=== PATIENT | male | born 2000 | race Two or more races ===

== ENCOUNTER 2023-04-26 01:01 | Emergency (ER) | payer SELFPAY ==
[2023-04-26 04:17] LABS: CORONAVIRUS COVID-19 NAA POSITIVE (NEGATIVE); INFLUENZA A NAA NEGATIVE (NEGATIVE); INFLUENZA B NAA NEGATIVE (NEGATIVE)
[2023-04-26] MEDS ORDERED: Acetaminophen 500 MG Tab PO STA (04:30)
[2023-04-26 05:02] LABS: BASOPHILS ABSOLUTE AUTO 0.07 K/uL (0.00-0.20); EOSINOPHILS ABSOLUTE AUTO 0.23 K/uL (0.00-0.45); EOSINOPHILS PERCENT AUTO 3.4 % (0.0-6.0); IMMATURE GRAN ABSOLUTE AUTO 0.01 K/uL (0.00-0.05); IMMATURE GRAN PERCENT AUTO 0.1 % (0.0-0.4); LYMPHOCYTES ABSOLUTE AUTO 2.77 K/uL (1.00-4.80); LYMPHOCYTES PERCENT AUTO 40.4 % (24.0-44.0); MEAN CORPUSCULAR HEMOGLOBIN 30.7 pg (28.0-32.0); MEAN CORPUSCULAR HGB CONC 35.7 g/dL (32.0-36.0); MEAN CORPUSCULAR VOLUME 86.1 fL (83.0-99.0); MEAN PLATELET VOLUME 9.4 fL (9.4-12.4); MONOCYTES ABSOLUTE AUTO 0.42 K/uL (0.00-0.80); MONOCYTES PERCENT AUTO 6.1 % (0.0-8.0); NEUTROPHILS ABSOLUTE AUTO 3.36 K/uL (1.80-7.70); PLATELET COUNT,PLT 341 K/uL (150-400); RED BLOOD CELL COUNT 4.88 M/uL (4.52-5.90); WHITE BLOOD CELL COUNT,WBC 6.86 K/uL (3.9-11.3)
[2023-04-26 05:19] LABS: BLOOD UREA NITROGEN,BUN 17 mg/dL (7.0-18.0); CALCIUM 9.1 mg/dL (8.5-10.1); CARBON DIOXIDE,CO2 27.7 mmol/L (21.0-32.0); CHLORIDE,CL 102 mmol/L (98-107); ESTIMATED GFR 108 mL/min (>60); GLUCOSE RANDOM 121 mg/dL (74-106); POTASSIUM,K 4.1 mmol/L (3.5-5.1); SODIUM,NA 139 mmol/L (136-148)
== END 2023-04-26 05:30 | disposition home or self-care (01) ==
LOC: MW.ED 01:01
DX: U07.1 COVID-19 (principal)
CPT/HCPCS: 0240U; 36415; 71045; 80048; 85025; 85379; 99283; A9270

== ENCOUNTER 2024-10-14 17:04 | Day surgery (SDC) | payer SELFPAY ==
[2024-10-14 17:39] LABS: BASOPHILS ABSOLUTE AUTO 0.07 K/uL (0.00-0.20); BASOPHILS PERCENT AUTO 0.8 % (0.0-1.0); EOSINOPHILS ABSOLUTE AUTO 0.15 K/uL (0.00-0.45); EOSINOPHILS PERCENT AUTO 1.7 % (0.0-6.0); HEMATOCRIT 44.5 % (42.0-52.0); HEMOGLOBIN 15.7 g/dL (14.0-18.0); IMMATURE GRAN ABSOLUTE AUTO 0.02 K/uL (0.00-0.05); IMMATURE GRAN PERCENT AUTO 0.2 % (0.0-0.4); LYMPHOCYTES ABSOLUTE AUTO 2.06 K/uL (1.00-4.80); LYMPHOCYTES PERCENT AUTO 23.1 % (24.0-44.0); MEAN CORPUSCULAR HEMOGLOBIN 30.7 pg (28.0-32.0); MEAN CORPUSCULAR HGB CONC 35.3 g/dL (32.0-36.0); MEAN CORPUSCULAR VOLUME 87.1 fL (83.0-99.0); MEAN PLATELET VOLUME 9.7 fL (9.4-12.4); MONOCYTES ABSOLUTE AUTO 0.58 K/uL (0.00-0.80); MONOCYTES PERCENT AUTO 6.5 % (0.0-8.0); NEUTROPHILS ABSOLUTE AUTO 6.05 K/uL (1.80-7.70); NEUTROPHILS PERCENT AUTO 67.7 % (41.0-71.0); PLATELET COUNT,PLT 328 K/uL (150-400); RED BLOOD CELL COUNT 5.11 M/uL (4.52-5.90); WHITE BLOOD CELL COUNT,WBC 8.93 K/uL (3.9-11.3)
[2024-10-14 18:01] LABS: A/G RATIO 1.1 (0.9-1.6); BILIRUBIN TOTAL 0.9 mg/dL (0.2-1.0); CALCIUM 9.1 mg/dL (8.5-10.1); CARBON DIOXIDE,CO2 27.2 mmol/L (21.0-32.0); CREATININE 1.1 mg/dL (0.8-1.3); POTASSIUM,K 3.2 mmol/L (3.5-5.1); PROTEIN TOTAL,TP 7.7 g/dL (6.4-8.2)
[2024-10-14] MEDS: Sodium Chloride 0.9% 1,000 ML IV ONE (18:10)
[2024-10-14] MEDS: Ondansetron 4 MG/2 ML SDV IVPUSH ONE (18:11)
[2024-10-14] MEDS: Morphine 4 MG/ML Syringe IVPUSH ONE (18:11)
[2024-10-14] MEDS: cefOXitin 2 GM in Water For Injection, Sterile 20 ML IVPUSH ONE (20:58)
[2024-10-14] MEDS ORDERED: Propofol 200 MG/20 ML SDV ONE (21:20)
[2024-10-14] MEDS ORDERED: HYDROmorphone 1 MG/ML Syringe ONE (21:20)
[2024-10-14] MEDS ORDERED: dexmedeTOMIDine HCl 200 MCG/2 ML SDV ONE (21:20)
[2024-10-14] MEDS ORDERED: Sodium Chloride 0.9% 20 ML ONE (21:20)
[2024-10-14] MEDS ORDERED: Rocuronium Bromide 50 MG/5 ML Syringe ONE (21:20)
[2024-10-14] MEDS ORDERED: Bupivacaine 0.25% 30 ML SDV ONE ×2 (21:22→21:27)
[2024-10-14] MEDS ORDERED: Dexamethasone 4 MG/ML 5 ML MDV ONE (22:07)
[2024-10-14] MEDS ORDERED: Ondansetron 4 MG/2 ML SDV ONE (22:07)
[2024-10-14] MEDS ORDERED: Ketorolac 30 MG/ML SDV ONE (22:35)
[2024-10-14] MEDS ORDERED: Sugammadex Sodium 200 MG/2 ML VIAL IV ONE (22:35)
[2024-10-14] MEDS ORDERED: HYDROmorphone 1 MG/ML Syringe IVPUSH PRN (22:52)
[2024-10-14] MEDS ORDERED: fentaNYL 50 MCG/ML SDV IVPUSH PRN (22:52)
[2024-10-14] MEDS ORDERED: Ondansetron 4 MG/2 ML SDV IVPUSH PRN ×2 (22:52→23:15)
[2024-10-14] MEDS ORDERED: Naloxone 0.4 MG/ML SDV IVPUSH PRN (22:52)
[2024-10-14] MEDS ORDERED: Morphine 2 MG/ML SYRINGE IVPUSH PRN ×2 (22:52→23:17)
[2024-10-14] MEDS ORDERED: Albuterol 0.083% 2.5 MG/3 ML Neb Soln NEB PRN (22:52)
[2024-10-14] MEDS ORDERED: Phenylephrine HCl In 0.9% NaCl 1 MG/10 ML Syringe IVPUSH PRN (22:52)
[2024-10-14] MEDS ORDERED: Metoclopramide 10 MG/2 ML SDV IVPUSH PRN (22:52)
[2024-10-14] MEDS ORDERED: Lactated Ringers 1,000 ML IV SCH (23:15)
[2024-10-14] MEDS: Lactated Ringers 1,000 ML IV SCH (23:59)
[2024-10-15] MEDS: cefOXitin 1 GM in Water For Injection, Sterile 10 ML IVPUSH SCH (00:11)
[2024-10-15] MEDS: Acetaminophen/HYDROcodone 325-5 MG Tab PO PRN (00:16)
== END 2024-10-15 09:40 | disposition home or self-care (01) ==
LOC: MW.ED 17:04 → MW.SDS 21:57 → MW.MS 21:58 → MW.SDS 10-15 09:40
PROVIDERS: ATTEND Surgery
DX: K35.33 Acute appendicitis with perforation, localized peritonitis, and gangrene, with abscess (principal); F17.210 Nicotine dependence, cigarettes, uncomplicated
CPT/HCPCS: 00840; 36415; 51702; 64488; 74177; 74177-26; 80053; 83690; 83735; 85025; 96361; 96374; 96375; 99285; 99285-25; A9270-GY; J0665; J0694; J1100; J1171; J1885; J2270; J2405; J2704; J3490; J7030; J7120